=== PATIENT | male | born 1990 | race Caucasian/White ===

== ENCOUNTER 2017-01-19 17:05 | Inpatient (IN) | payer BC, OTHER ==
[~2017-01-19] VITALS: Ht 177.8 cm; Wt 61.2 kg
[2017-01-19 20:00] VITALS: BP 137/67
[2017-01-19] MEDS ORDERED: LORAZEPAM 1 MG TABLET PO PRN ×2 (20:00)
[2017-01-19] MEDS ORDERED: MAG HYDROX/AL HYDROX/SIMETH 30 ML LIQUID UDC PO PRN (20:00)
[2017-01-19] MEDS ORDERED: ONDANSETRON ODT 4 MG TAB.RAPDIS SL PRN (20:00)
[2017-01-19] MEDS ORDERED: diphenhydrAMINE 50 MG CAPSULE PO PRN (20:00)
[2017-01-19] MEDS ORDERED: LORAZEPAM 2 MG/1 ML VIAL IM PRN (20:00)
[2017-01-19] MEDS ORDERED: CLONIDINE HCL 0.1 MG TABLET PO PRN (20:00)
[2017-01-19] MEDS ORDERED: MIRALAX 17 GM POWD.PACK PO PRN (20:00)
[2017-01-19] MEDS ORDERED: ONDANSETRON 4 MG/2 ML VIAL IM PRN (20:00)
[2017-01-19] MEDS ORDERED: IBUPROFEN 400 MG TABLET PO PRN (20:00)
[2017-01-19] MEDS ORDERED: LOPERAMIDE HCL 2 MG CAPSULE PO PRN ×2 (20:00)
--- NOTE | 2017-01-19 20:35 | NUR ---
PRE ADMISSION Pt is a 26 y/o male, seen at intake, AAOx4, no SOB with mild anxiety noted at this time. Discussed with patient the admission policies of the unit. Patient is coherent and able to respond to questions appropriately. Pt is ambulatory with steady gait. Vital signs taken and as follows: BP: 137/67, P: 83, R: 16, O2: 99%, T: 98.7, Pain: 2/10 (headache). Pt verbalized understanding of instructions and teachings regarding disposal of narcotic and other controlled home medications, unit protocols such as taking of vital signs Q4H and handling and disposal of contraband. Will continue with admission upon pts arrival on the unit.
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
[2017-01-19 21:53] LABS: BASOPHILS # (AUTO) 0.1 K/uL (0.0-8.0); BASOPHILS % (AUTO) 0.9 % (0.0-2.0); EOSINOPHILS # (AUTO) 0.2 K/uL (0.0-0.7); EOSINOPHILS % (AUTO) 2.2 % (0.0-7.0); HEMATOCRIT 45.4 % (40-50); HEMOGLOBIN 15.5 G/DL (14.0-18.0); LYMPHOCYTES % (AUTO) 34.3 % (20.5-51.5); MEAN CORPUSCULAR HEMOGLOBIN 31.3 UUG (27.0-31.0); MEAN CORPUSCULAR HGB CONC 34 g/dL (32.0-37.0); MEAN CORPUSCULAR VOLUME 91.7 FL (82.0-92.0); MONOCYTES # (AUTO) 0.9 K/UL (0.1-1.30); NEUTROPHILS # (AUTO) 4.5 K/UL (1.8-8.9); NEUTROPHILS % (AUTO) 52.6 % (38.5-71.5); PLATELET COUNT (AUTO) 296 K/UL (150-450); RED BLOOD CELL COUNT(AUTO) 4.95 MIL/UL (4.7-6.1); WHITE BLOOD COUNT (AUTO) 8.7 K/UL (4.0-11.2)
[2017-01-19 22:03] LABS: ALANINE AMINOTRANSFERASE 52 U/L (16-63); ALKALINE PHOSPHATASE 93 U/L (50-136); AMYLASE 90 U/L (25-115); ASPARTATE AMINOTRANSFERASE 28 U/L (15-37); BILIRUBIN,TOTAL 0.7 mg/dL (0.2-1.0); CARBON DIOXIDE 30 mmol/L (21-32); CHLORIDE 104 mmol/L (98-107); CREATININE 1.1 mg/dL (0.6-1.3); GLUCOSE 99 mg/dL (74-106); MAGNESIUM 2.1 mg/dL (1.8-2.4); POTASSIUM 3.9 mmol/L (3.5-5.1); TOTAL PROTEIN, SERUM 7.3 g/dL (6.4-8.2); UREA NITROGEN, BLOOD 21 mg/dL (7-18)
[2017-01-19 22:06] LABS: ETHANOL < 3 MG/DL (0-0)
[2017-01-20] VITALS: BP 136/85
[2017-01-20 04:00] VITALS: BP 114/69
--- NOTE | 2017-01-20 04:00 | NUR ---
CIWA DEFERRED Pt is laying in bed with eyes closed, CIWA deferred, to be assessed when pt is fully awake per orders. Respirations 15, even and unlabored. Safety measures in place. Call light within reach. Will continue to monitor.
[2017-01-20 05:17] LABS: *AMPHETAMINE, URINE NEGATIVE (NEGATIVE); *BARBITURATE, URINE NEGATIVE (NEGATIVE); *CANNABINOID, URINE POSITIVE (NEGATIVE); *COCCAINE, URINE NEGATIVE (NEGATIVE); *OPIATE, URINE NEGATIVE (NEGATIVE); *PHENCYCLIDINE SCREEN,URINE NEGATIVE (NEGATIVE)
--- NOTE | 2017-01-20 07:16 | NUR ---
END OF SHIFT Pt is a 26 y/o male admitted on for meth and ETOH dependence. Pts last intake of meth was 1 gram 3 weeks ago and last intake of whiskey was an unspecified amount 2 weeks ago. Pt reports using meth 2 weeks on and off and going on binges. Pt also reports drinking ETOH daily 500 ml, but decreased usage the past two weeks to intermittent use. Pt is full code, regular diet, fall/seizure precautions. No known seizure history. Pt reports PMH of anxiety and depression. Labs and UDS provided. Pt has no ordered taper at this time, only PRN lorazepam ordered. Pt presented with anxiety, agitation, restlessness, mild headache, decreased appetite, dysphoria, anhedonia and was withdrawn. CIWA 3 upon admission which decreased to CIWA 1 during shift. No scheduled medications or PRNs administered. Pt slept 6 hours. Intake 474 ml, void x 1, stool x 0. Safety measures in place. Call light within reach. Pts needs have been met. Endorsed to day shift nurse.
--- NOTE | 2017-01-20 07:17 | NUR ---
Start of Shift Notes: Received patient in his room. Alert and verbally responsive. Oriented x 4. Able to make his needs known. Respirations even and unlabored. No SOB noted. Skin warm and dry to touch. Abdomen soft and non-distended. BS (+) in all 4 quadrants. No complains of N/V/D or constipation noted. No abdominal discomfort noted. Bladder non-distended. No complains of dysuria noted. Voids independently. Ambulatory ad becky with steady gait. Patient is a 26 year old male admitted for methamphetamine dependence and ETOH dependence who was placed on PRNs at this time. Prior to admission, patient was using 1 gram of methamphetamine and inconsistent amount of whiskey. Has past medical hx of anxiety, depression. NKA. FULL DEVYN. Regular diet. On fall and seizure precautions. Educated patient on his current plano of care for the day and his medication regimen. Encouraged oral fluid intake and encouraged group participation to learn new skills to prevent relapse. Will continue to monitor.
[2017-01-20 08:00] VITALS: BP 96/50
[2017-01-20] MEDS: MULTIVITAMINS,THERAPEUTIC TABLET PO SCH (08:35)
[2017-01-20] MEDS: FOLIC ACID 1 MG TABLET PO SCH (08:35)
[2017-01-20] MEDS: THIAMINE HCL 100 MG TABLET PO SCH (08:35)
--- NOTE | 2017-01-20 08:37 | NUR ---
TB test not administered: Patient refused TB test at this time. Patient noted with no s/s of cough. No congestion. No runny nose. Education provided. Will continue to monitor and notify MD of patient's refusal.
[2017-01-20] MEDS ORDERED: TUBERCULIN,PURIF.PROT.DERIV. 5 TU/0.1 ML TEST ID ONE (09:00)
--- NOTE | 2017-01-20 09:00 | NUR ---
CIWA 5 Patient's CIWA 5 due to mild to moderate anxiety, and sweats. Patient verabalizes that he feels anxious due to the adjustment process and being in a new environment. Offered Ativan 1 mg PO per CIWA score. per patient, he will try to redirect himself without taking any medications and will attempt to self soothe himself at this time by reading a book. Educated patient on seizure risk and benefits of taking medication. Patient verbalized understanding but still refused Ativan. Will continue to monitor the patient.
[2017-01-20 12:00] VITALS: BP 133/86
[2017-01-20 16:00] VITALS: BP 125/86
--- NOTE | 2017-01-20 19:16 | NUR ---
End of Shift Notes: Patient is on close monitoring. Continues to be on PRN Ativan to manage his withdrawal symptoms. VS monitored closely. No significant abnormalities noted. Withdrawal symptoms were closely monitored. Initial CIWA 5, patient presented with mild to moderate anxiety, offered PRN Ativan per CIWA score but patient refused. Able to participate in group and activities. Compliant with care and treatment. Last CIWA2. All needs met and attended. Will continue to monitor closely.
--- NOTE | 2017-01-20 19:30 | NUR ---
START OF SHIFT Pt is a 26 y/o male admitted on for meth and ETOH dependence. Pts last intake of meth was 1 gram 3 weeks ago and last intake of whiskey was an unspecified amount 2 weeks ago. Pt reports using meth 2 weeks on and off and going on binges. Pt also reports drinking ETOH daily 500 ml, but decreased usage the past two weeks to intermittent use. Pt is full code, regular diet, fall/seizure precautions. No known seizure history. Pt reports PMH of anxiety and depression. Pt is not on an ordered taper. Upon assessment pt presents with anxiety, agitation, depression, restlessness, headache, decreased appetite, dysphoria, anhedonia and was withdrawn. Respirations 16, even and unlabored. Denies N/V/D. Denies chest pain or SOB. Medications due. Safety measures in place. Call light within reach. Will continue to monitor.
[2017-01-20 20:00] VITALS: BP 142/79
[2017-01-20] MEDS: ACETAMINOPHEN 325 MG TABLET PO PRN (20:54)
--- NOTE | 2017-01-20 20:54 | NUR ---
PRN TYLENOL 650 MG ADMINISTRATION Pt reports headache 06/02 and requests Tylenol. Safety measures in place. Call light within reach. Will continue to monitor.
--- NOTE | 2017-01-20 21:54 | NUR ---
PRN TYLENOL REASSESSMENT Pt reports headache "went away." Pt is walking in hallway and just came from rec room. Will continue to monitor.
[2017-01-21] VITALS: BP 126/75
--- NOTE | 2017-01-21 | NUR ---
CIWA DEFERRED Pt is laying in bed with eyes closed, CIWA deferred, to be assessed when pt is fully awake per orders. Respirations 16, even and unlabored. Safety measures in place. Call light within reach. Will continue to monitor.
--- NOTE | 2017-01-21 04:00 | NUR ---
VITALS REFUSED AND CIWA DEFERRED Pt is laying in bed with eyes closed, CIWA deferred, to be assessed when pt is fully awake per orders. Pt refused vitals. Respirations 16, even and unlabored. Safety measures in place. Call light within reach. Will continue to monitor.
--- NOTE | 2017-01-21 07:13 | NUR ---
END OF SHIFT Pt is a 26 y/o male admitted on for meth and ETOH dependence. Pts last intake of meth was 1 gram 3 weeks ago and last intake of whiskey was an unspecified amount 2 weeks ago. Pt reports using meth 2 weeks on and off and going on binges. Pt also reports drinking ETOH daily 500 ml, but decreased usage the past two weeks to intermittent use. Pt is full code, regular diet, fall/seizure precautions. No known seizure history. Pt reports PMH of anxiety and depression. Pt is not on an ordered taper. Pt presented with anxiety, agitation, depression, restlessness, headache, decreased appetite, dysphoria, anhedonia and was withdrawn. PRN Tylenol administered, effective in reducing headache 3/10 to 0/10. Encouraged pt to participate in treatment program to reduce feelings of anxiety, restlessness, irritability and depression. Pt verbalized improvement in symptoms by end of shift. Last CIWA 4 at 1999, all other CIWAs deferred. Pt slept 7 hours. Intake 250 ml, void x 2, stool x 0. Safety measures in place. Call light within reach. Pts needs have been met. Endorsed to day shift nurse.
[2017-01-21 08:00] VITALS: BP 132/82
[2017-01-21] MEDS: MULTIVITAMINS,THERAPEUTIC TABLET PO SCH (08:58)
[2017-01-21] MEDS: FOLIC ACID 1 MG TABLET PO SCH (08:58)
[2017-01-21] MEDS: THIAMINE HCL 100 MG TABLET PO SCH (08:58)
[2017-01-21 10:07] LABS: HEPATITIS B SURFACE AG Negative (Negative)
[2017-01-21 12:00] VITALS: BP 132/77
[2017-01-21 16:00] VITALS: BP 127/71
--- NOTE | 2017-01-21 18:56 | NUR ---
End of Shift Notes: Patient is on close monitoring. Continues to be on PRN Ativan to manage his withdrawal symptoms. VS monitored closely. No significant abnormalities noted. Withdrawal symptoms were closely monitored. Initial CIWA 4, patient presented with mild to moderate anxiety. Able to participate in group and activities. Compliant with care and treatment. Last CIWA 0. Patient will be discharging today. All needs met and attended. Will continue to monitor closely.
--- NOTE | 2017-01-21 19:42 | NUR ---
START OF SHIFT Patient is 26-year-old male admitted on 01/19/17 for methamphetamine dependence and ETOH dependence. Patient has medical history of anxiety and depression. Patient has not been prescribed a taper, only PRN lorazepam. Patient is scheduled for discharge tomorrow. Patient is FULL code, NKA, and on regular diet. Patient is on fall and seizure precautions with no history of seizure. Upon assessment, patient is alert and oriented x4, breathing is even and unlabored, no distress noted at this time; patient complains of mild headache. Patient is on fall and seizure precautions with no history of seizure. Safety measures are in place, patient's bed is locked in low position, side rails up x2, call light within reach. Will continue to monitor.
[2017-01-21 20:00] VITALS: BP 153/71
[2017-01-21] MEDS: ACETAMINOPHEN 325 MG TABLET PO PRN (20:46)
--- NOTE | 2017-01-21 20:46 | NUR ---
PRN TYLENOL Patient complains of mild headache, 3/10 and requests PRN Tylenol. PRN Tylenol 650mg given PO for pain. Patient's respirations are even and unlabored, no signs of distress noted. Safety measures in place, call light within reach, will reassess in one hour.
--- NOTE | 2017-01-21 21:46 | NUR ---
PRN TYLENOL REASSESSMENT Patient reports that he no longer has a headache, stating 0/10 on pain scale. PRN Tylenol effective. Safety measures in place, call light within reach, will continue to monitor.
--- NOTE | 2017-01-22 | NUR ---
MIDNIGHT VITALS REFUSED, CIWA DEFERRED Patient refused to be woken up for midnight vital signs. CIWA is deferred due to patient sleeping, to be assessed while patient is awake per protocol. Patient is resting, respirations 16/min, even and unlabored, no signs of distress noted. Safety measures in place, call light within reach, will continue to monitor.
[2017-01-22 04:05] VITALS: BP 115/75
--- NOTE | 2017-01-22 07:20 | NUR ---
END OF SHIFT Patient is 26-year-old male admitted on 01/19/17 for methamphetamine dependence and ETOH dependence. Patient has medical history of anxiety and depression. Patient was originally scheduled for discharge today, but discharge moved to tomorrow 01/24/17. Patient is FULL code, NKA, and on regular diet. Patient is on fall and seizure precautions with no history of seizure. Patient received PRN Tylenol for headache at 2045, was effective. Patient slept for 6 hours, total intake 2300mL, void x3, stool x0. Last CIWA score was 0. Safety measures are in place, patient's bed is locked in low position, side rails up x2, call light within reach. Will endorse to day shift.
--- NOTE | 2017-01-22 07:53 | NUR ---
Start of shift note; Received report from night nurse. Patient is a 26 year old male admitted on 01/19/17 for Meth, ETOH dependence. Patient reported history of anxiety, depression. Patient is on full code status, NKA, on regular diet. No PRN's were given last night. Patient is on fall and seizure precautions. Bed in lowest position, call light within reach. Will continue to monitor patient.
[2017-01-22 08:00] VITALS: BP 130/88
[2017-01-22] MEDS: FOLIC ACID 1 MG TABLET PO SCH (08:19)
[2017-01-22] MEDS: MULTIVITAMINS,THERAPEUTIC TABLET PO SCH (08:19)
[2017-01-22] MEDS: THIAMINE HCL 100 MG TABLET PO SCH (08:19)
--- NOTE | 2017-01-22 09:27 | NUR ---
Discharge note; Patient is AOX4. All valuables, belongings given to patient. Patient completed treatment without any adverse reactions. Patient is medically cleared for discharge today. Met all patient's needs.
== END 2017-01-22 09:27 | disposition other institution (70) | DRG 895 ==
LOC: SRC 19:40
PROVIDERS: ADMIT Internal Medicine; ATTEND Internal Medicine
PROC: HZ2ZZZZ Detoxification Services for Substance Abuse Treatment (ICD-10-PCS; principal; 2017-01-19)
PROC: HZ41ZZZ Group Counseling for Substance Abuse Treatment, Behavioral (ICD-10-PCS; 2017-01-20)
DX: F10.230 Alcohol dependence with withdrawal, uncomplicated (principal); F15.10 Other stimulant abuse, uncomplicated; Y90.9 Presence of alcohol in blood, level not specified; F41.9 Anxiety disorder, unspecified; F16.10 Hallucinogen abuse, uncomplicated; Z81.1 Family history of alcohol abuse and dependence; Z81.8 Family history of other mental and behavioral disorders; F32.9 Major depressive disorder, single episode, unspecified; F44.81 Dissociative identity disorder; Z91.89 Other specified personal risk factors, not elsewhere classified
CPT/HCPCS: 36415; 70030-TC; 80307; 80349; 83735; 85025; 86580; 86592; 86705; 86803; 87340; 87806; A4663; G0480